=== PATIENT | male | born 1995 | race Caucasian/White ===

== ENCOUNTER 2020-08-15 04:51 | Emergency (ER) | payer MEDICAID ==
[~2020-08-15] VITALS: Ht 172.7 cm; Wt 59.1 kg
[2020-08-15] MEDS ORDERED: SODIUM CHLORIDE 0.9% 250 ML IRRIG SOLUTION BOTTLE IRRIG ONE (06:45)
[2020-08-15] MEDS ORDERED: BACITRACIN 0.9 GM PACKET OINTMENT TP ONE (06:45)
[2020-08-15 06:46] VITALS: BP 121/73
== END 2020-08-15 07:43 | disposition home or self-care (01) ==
LOC: EMS 05:00
DX: S62.637A Displaced fracture of distal phalanx of left little finger, initial encounter for closed fracture (principal); X58.XXXA Exposure to other specified factors, initial encounter; Y93.89 Activity, other specified; Y92.89 Other specified places as the place of occurrence of the external cause; Y99.8 Other external cause status
CPT/HCPCS: 99283

== ENCOUNTER 2020-08-17 15:00 | Emergency (ER) | payer MEDICAID ==
[~2020-08-17] VITALS: Ht 170.2 cm; Wt 70.5 kg
[2020-08-17 16:08] VITALS: BP 126/73
== END 2020-08-17 16:20 | disposition home or self-care (01) ==
LOC: EMS 15:02
DX: S62.606D Fracture of unspecified phalanx of right little finger, subsequent encounter for fracture with routine healing (principal); X58.XXXD Exposure to other specified factors, subsequent encounter
CPT/HCPCS: 99281; Z7502

== ENCOUNTER 2021-05-02 12:42 | Emergency (ER) | payer MEDICAID ==
[~2021-05-02] VITALS: Ht 170.2 cm; Wt 68.2 kg
[2021-05-02] MEDS ORDERED: SODIUM CHLORIDE 0.9% 1,000 ML IV ONE (13:00)
[2021-05-02] MEDS ORDERED: LORazepam 2 MG/ML VIAL IVP ONE (13:00)
[2021-05-02 13:03] LABS: BASOPHILS % (AUTO) 0.2 % (0.0-2.0); EOSINOPHILS % (AUTO) 0.1 % (1.0-6.0); HEMATOCRIT 43.5 % (41-53); HEMOGLOBIN 14.5 g/dL (13.5-17.5); LYMPHOCYTES # (AUTO) 0.6 K/uL (1.0-4.8); LYMPHOCYTES % (AUTO) 3.8 % (22.0-44.0); MEAN CORPUSCULAR HEMOGLOBIN 28.9 pg (26.0-34.0); MEAN CORPUSCULAR HGB CONC 33.4 G/dL (31.0-37.0); MEAN CORPUSCULAR VOLUME 87 fL (80-100); MONOCYTES # (AUTO) 0.6 K/uL (0.1-1.0); NEUTROPHILS # (AUTO) 14.1 K/uL (1.8-7.7); PLATELET COUNT (AUTO) 217 K/uL (150-450); RED BLOOD CELL COUNT(AUTO) 5.03 MIL/uL (4.50-5.90); RED CELL DISTRIBUTION WIDTH 13.8 % (11.5-14.5)
[2021-05-02 13:04] LABS: NEUTROPHILS % (AUTO) 91.9 % (40.0-70.0)
[2021-05-02 13:11] LABS: ANION GAP 10 mmol/L (8-16); CALCIUM, TOTAL 9.1 mg/dL (8.8-10.5); CARBON DIOXIDE 24 mmol/L (22-29); CHLORIDE 103 mmol/L (98-107); CREATININE 1.05 mg/dL (0.60-1.30); GLOMERULAR FILTR. RATE CALC > 60 mL/min (>60); GLUCOSE,RANDOM 109 mg/dL (70-110); POTASSIUM 4.5 mmol/L (3.5-5.1); SODIUM SERUM 137 mmol/L (136-145); UREA NITROGEN, BLOOD 16 mg/dL (7-18)
[2021-05-02 13:20] LABS: ALANINE AMINOTRANSFERASE 21 U/L (12-78); ALBUMIN 4.1 g/dL (3.4-5.0); ALKALINE PHOSPHATASE 75 U/L (46-116); ASPARTATE AMINOTRANSFERASE 21 U/L (15-37); BILIRUBIN,TOTAL 0.4 mg/dL (0.1-1.0); CREATINE KINASE, TOTAL ONLY 315 U/L (39-308); TOTAL PROTEIN, SERUM 8.3 g/dL (6.4-8.2)
[2021-05-02 13:42] VITALS: BP 129/76
== END 2021-05-02 13:54 | disposition left against medical advice (07) ==
LOC: EMS 12:47
DX: R56.9 Unspecified convulsions (principal); F12.90 Cannabis use, unspecified, uncomplicated
CPT/HCPCS: 36415; 80053; 82550; 83735; 85025; 99283; G0480

== ENCOUNTER 2022-10-18 19:33 | Emergency (ER) | payer MEDICAID ==
[~2022-10-18] VITALS: Ht 175.3 cm; Wt 70.5 kg
[2022-10-18 19:43] VITALS: BP 136/73; PULSE 57; RESP 16; TEMP 98.9
[2022-10-18] MEDS ORDERED: LEVE500T20 PO (19:45)
== END 2022-10-18 22:48 | disposition home or self-care (01) ==
LOC: EMS 19:33
DX: M79.645 Pain in left finger(s) (principal); F12.90 Cannabis use, unspecified, uncomplicated; Z79.899 Other long term (current) drug therapy
CPT/HCPCS: 99283